=== PATIENT | male | born 2005 | race Caucasian/White ===

== ENCOUNTER 2025-02-10 18:17 | Emergency (ER) | payer SELFPAY ==
[~2025-02-10] VITALS: Ht 172.7 cm; Wt 80.0 kg
[2025-02-10 18:26] VITALS: O2SAT 98
[2025-02-10] MEDS ORDERED: AMOX1TAB16 MT (19:13)
[2025-02-10] MEDS ORDERED: IBUP-2028 MT (19:13)
[2025-02-10] MEDS: IBUPROFEN 400MG TABLET PO ONE (19:30)
[2025-02-10 19:34] VITALS: BP 113/69; PULSE 71; RESP 18; TEMP 36.9; O2SAT 99
== END 2025-02-10 19:44 | disposition home or self-care (01) ==
LOC: ER 18:17
DX: K04.7 Periapical abscess without sinus (principal)
CPT/HCPCS: 99283

== ENCOUNTER 2025-02-10 23:49 | Emergency (ER) | payer SELFPAY ==
[~2025-02-10] VITALS: Ht 170.2 cm; Wt 75.5 kg
[~2025-02-10 23:49] MED LIST: AMOX1TAB16 MT; IBUP-2028 MT
[2025-02-10 23:56] VITALS: TEMP 36.7; O2SAT 99
[2025-02-10 23:57] VITALS: BP 156/62; PULSE 64; RESP 16; O2SAT 99
== END 2025-02-11 00:20 | disposition home or self-care (01) ==
LOC: ER 23:49
DX: K04.7 Periapical abscess without sinus (principal)
CPT/HCPCS: 99281